=== PATIENT | male | born 1945 | race Caucasian/White ===

== ENCOUNTER 2020-11-07 11:36 | Emergency (ER) | payer MEDICARE ==
[~2020-11-07] VITALS: Ht 170.2 cm; Wt 99.8 kg
[~2020-11-07 11:36] MED LIST: ACYCLOVIR 400400 MG PO; ASPIR 8181 MG PO; D3 + K2 DOTS 11 EACH PO; ESTER-C 500 MG1 EACH PO; HYDROCHLOROTHIA25 M1 PO; KRILL OIL500 MG PO; LISINOPRIL2.5 MG PO; NEXIUM40 MG PO; NITROSTAT0.4 M1 SL; TOPROL XL25 MG PO; ZOCOR20 MG PO
[2020-11-07 12:08] LABS: ABSOLUTE EOSINOPHILS 0.3 thou/uL (0.0-0.7); ABSOLUTE LYMPHOCYTES 1.2 thou/uL (0.8-5.3); ABSOLUTE MONOCYTES 0.6 thou/uL (0.0-1.2); ABSOLUTE NEUTROPHILS 3.4 thou/uL (1.6-8.1); BASOPHILS 0.8 %; EOSINOPHILS 5.1 %; HEMOGLOBIN 11.5 gm/dL (14.0-18.0); LYMPHOCYTES 21.6 %; MCH 37.1 pg (26.0-34.0); MCHC 34.9 g/dL (28.0-37.0); MCV 106.3 fL (80.0-100.0); MONOCYTES 11.4 %; MPV 8.6 fl. (7.2-11.1); NUCLEATED RBCS 0 /100WBC; PLATELET COUNT* 150 thou/uL (150-400); POLYS 61.1 %; RBC 3.11 mil/uL (4.50-6.00); RDW-CV 13.2 % (10.5-14.5); WBC 5.6 thou/uL (4.0-11.0)
[2020-11-07 12:22] LABS: CALCIUM 8.8 mg/dL (8.5-10.1); POTASSIUM 4.9 mmol/L (3.5-5.1)
[2020-11-07 12:34] LABS: ALBUMIN 3.6 g/dL (3.4-5.0); MAGNESIUM 2.2 mg/dL (1.8-2.4); TOTAL BILIRUBIN 0.6 mg/dL (<0.1-1.0); TOTAL PROTEIN 7.1 g/dL (6.4-8.2)
[2020-11-07 14:33] VITALS: BP 110/50
--- NOTE | 2020-11-08 13:51 | EKG ---
[place] [address] ELECTROCARDIOGRAM REPORT Name: QI ROQUE Room: [facility]#: [id number] Admission: 11/07/20 Attend Phys: Discharge: 11/07/20 Date of : 41 Date of Service: 11/07/20 1140 Report #: [id number] THIS REPORT FOR: //name// [facility] ED Test Date: 2020-11-07 Test Time: 11:40:00 Pat Name: QI ROQUE Department: Room: Gender: Male Model: DS : 1945 Requested By: Timo Owusu Order Number: [id number] MD: Giovany Vidales Measurements Intervals [place] Rate: 55 P: 53 KS: 176 QRS: 9 QRSD: 93 T: 50 QT: 441 QTc: 422 Interpretive Statements Sinus rhythm Baseline wander in lead(s) V3 Compared to ECG 07/08/2015 11:42:11 Sinus bradycardia no longer present Atrial premature complex(es) no longer present Left ventricular hypertrophy no longer present Electronically Signed On 11-08-2020 13:51:10 CDT by Giovany Vidales [email or web address] <ELECTRONICALLY SIGNED> By: Giovany Vidales MD, [facility] 11/08/20 1351 1140 1140 Giovany Vidales MD, FAC /EPI
== END 2020-11-07 14:33 | disposition home or self-care (01) ==
LOC: M.ERS 11:36
PROVIDERS: Family Medicine
DX: R07.89 Other chest pain (principal); I10 Essential (primary) hypertension; Z95.5 Presence of coronary angioplasty implant and graft